=== PATIENT | male | born 1970 | race Caucasian/White ===

== ENCOUNTER 2021-07-12 16:11 | Inpatient (IN) | payer MEDICARE ==
[2021-07-12] MEDS ORDERED: Ondansetron 4 MG Tab.DIS PO PRN (16:32)
[2021-07-12] MEDS ORDERED: Enoxaparin 40 MG/0.4 ML Syringe SUBCUT SCH (16:45)
[2021-07-12] MEDS ORDERED: cefTRIAXone 2 GM Vial IVPUSH SCH (16:45)
[2021-07-12] MEDS: Sodium Chloride 0.9% 10 ML Syringe FLUSH PRN (16:50)
[2021-07-12] MEDS: Sodium Chloride 0.9% 1,000 ML IV SCH (17:00)
[2021-07-12] MEDS: cefTRIAXone 2 GM Vial IVPUSH SCH (17:18)
[2021-07-12] MEDS: Doxycycline 100 MG in Sodium Chloride 0.9% 100 ML IV SCH (17:20)
[2021-07-12] MEDS: Acetaminophen 325 MG Tab PO PRN ×2 (17:20→21:27)
--- NOTE | 2021-07-12 18:16 | PCM.HP.2 ---
H&P History of Present Illness - General Date of Service: 07/12/21 Admit Problem/Dx: Admission Diagnosis/Problem Admission Diagnosis/Problem Pneumonia Source of Information: Patient, Family, Provider History Limitations: Reports: No Limitations - History of Present Illness Initial Comments - Free Text/Narative: Brain started having fever last night, 102.5F, gave him Tylenol and Nyquil to help him sleep. Had chills and cough but no shortness of breath. His got up at noon and checked his temp and was 102.7F and took him too the clinic. Dr Avila saw him, WBC was 23.0, CXR showed possible pneumonia with pleural effusion. He also noticed left leg pain, Dr Avila measured left leg and compared to right leg and they were same size, he was concerned with clot. He has allergy to Amoxicillin, rash but has taken cefdinir, doxycycline in past without issue. Covid & Influenza were negative. His did not use cold packs and last dose of Tylenol was this morning. No ibuprofen given. He is on disability but doesn't know for what. Abdomen Pain Score (Numeric/FACES): 4 - Related Data Allergies/Adverse Reactions: Allergies Allergy/AdvReac Type Severity Reaction Status Date / Time amoxicillin Allergy Rash Verified 07/12/21 16:58 Home Medications: Home Meds Acetaminophen [Tylenol Extra Strength] 1,000 mg PO Q6H PRN 07/12/21 [History] Dextromethorphan HB/Doxylamine [Vicks Nyquil Cough] 30 ml PO Q6H PRN 07/12/21 [History] H&P Review of Systems - Review of Systems: Review Of Systems: See Below General: Reports: Fever, Chills, Malaise HEENT: Reports: No Symptoms Pulmonary: Reports: Cough. Denies: Shortness of Breath Cardiovascular: Reports: Palpitations. Denies: Chest Pain Gastrointestinal: Reports: Nausea. Denies: Abdominal Pain, Constipation, Diarrhea, Vomiting Genitourinary: Reports: Burning. Denies: Dysuria, Frequency, Hematuria Musculoskeletal: Reports: Leg Pain Skin: Reports: Change in Color (red, left leg) Exam - Exam Exam: See Below - Vital Signs Vital Signs: Last Vital Signs Temp 102.4 F H 07/12/21 16:30 Pulse 90 07/12/21 16:30 Resp 18 07/12/21 16:30 BP 140/78 07/12/21 16:30 Pulse Ox 96 07/12/21 16:30 Weight: 208 lb 8 oz - Exam General: Alert, Oriented, Cooperative, Other (Flushed) HEENT: PERRLA, Conjunctiva Clear, EOMI, Hearing Intact, Posterior Pharynx Clear. No: Mucosa Moist & Keys Neck: Supple, Trachea Midline. No: Lymphadenopathy Lungs: Normal Respiratory Effort, Decreased Breath Sounds (BLL), Rales (RLL). No: Wheezing Cardiovascular: Tachycardia GI/Abdominal Exam: Normal Bowel Sounds, Soft, Non-Tender, No Distention (Male) Exam: Deferred Rectal (Males) Exam: Deferred Back Exam: Normal Inspection Extremities: Pedal Edema (left leg 1+), Victor Hugo's Sign (left), Increased Warmth (left calf), Redness (left calf) - Patient Data Lab Results Last 24 hrs: Laboratory Results - last 24 hr 07/12/21 07/12/21 07/12/21 Range/Units 17:00 17:00 17:00 WBC 21.0 H (3.2-10.1) x10-3/uL RBC 5.28 (3.90-5.90) x10(6)uL Hgb 15.5 (12.9-17.7) g/dL Hct 45.5 (38.3-50.1) % MCV 86.0 (80.8-98.7) fL MCH 29.3 (27.0-33.3) pg MCHC 34.1 (28.7-35.3) g/dL RDW 13.0 (12.4-15.0) % Plt Count 199 (117-477) x10(3)uL MPV 7.9 (6.7-11.0) fL Add Manual Diff Yes Neutrophils % (Manual) 91 H (46-82) % Band Neutrophils % 3 (0-6) % Lymphocytes % (Manual) 2 L (13-37) % Monocytes % (Manual) 4 (4-12) % Sodium 138 (135-145) mmol/L Potassium 3.9 (3.5-5.3) mmol/L Chloride 101 (100-110) mmol/L Carbon Dioxide 23 (21-32) mmol/L BUN 13 (7-18) mg/dL Creatinine 1.6 H (0.70-1.30) mg/dL Est Cr Clr Drug Dosing 48.05 mL/min Estimated GFR (MDRD) 46 L (>60) BUN/Creatinine Ratio 8.1 L (9-20) Glucose 140 H (80-116) mg/dL Lactic Acid (0.4-2.0) mmol/L Calcium 9.3 (8.6-10.2) mg/dL Magnesium 1.8 (1.8-2.5) mg/dL C-Reactive Protein 24.1 H* (0.5-0.9) mg/dL 07/12/21 Range/Units 17:00 WBC (3.2-10.1) x10-3/uL RBC (3.90-5.90) x10(6)uL Hgb (12.9-17.7) g/dL Hct (38.3-50.1) % MCV (80.8-98.7) fL MCH (27.0-33.3) pg MCHC (28.7-35.3) g/dL RDW (12.4-15.0) % Plt Count (117-477) x10(3)uL MPV (6.7-11.0) fL Add Manual Diff Neutrophils % (Manual) (46-82) % Band Neutrophils % (0-6) % Lymphocytes % (Manual) (13-37) % Monocytes % (Manual) (4-12) % Sodium (135-145) mmol/L Potassium (3.5-5.3) mmol/L Chloride (100-110) mmol/L Carbon Dioxide (21-32) mmol/L BUN (7-18) mg/dL Creatinine (0.70-1.30) mg/dL Est Cr Clr Drug Dosing mL/min Estimated GFR (MDRD) (>60) BUN/Creatinine Ratio (9-20) Glucose (80-116) mg/dL Lactic Acid 1.6 (0.4-2.0) mmol/L Calcium (8.6-10.2) mg/dL Magnesium (1.8-2.5) mg/dL C-Reactive Protein (0.5-0.9) mg/dL Result Diagrams: 07/12/21 17:00 07/12/21 17:00 Sepsis Event Note - Evaluation Sepsis Screening Result: Possible Sepsis Risk - Focused Exam Vital Signs: Vital Signs Temp Pulse Resp BP Pulse Ox Pulse Ox 07/12/21 16:30 102.4 F H 90 18 140/78 96 96 *Q Meaningful Use (ADM) - VTE Risk Assess *Q Each Risk Factor Represents 1 Point: Age 41 - 59 years, Obesity ( BMI > 25 kg/m2), Serious lung disease including pneumonia Total Score 1 Point Risk Factors: 3 Each Risk Factor Represents 2 Points: None Total Score 2 Point Risk Factors: 0 Each Risk Factor Represents 3 Points: None Total Score 3 Point Risk Factors: 0 Each Risk Factor Represents 5 Points: None Total Score 5 Point Risk Factors: 0 Venous Thromboembolism Risk Factor Score *Q: 3 - Problem List (1) Pneumonia SNOMED Code(s): 091599686 ICD Code: J18.9 - PNEUMONIA, UNSPECIFIED ORGANISM Status: Acute Current Visit: Yes (2) Fever SNOMED Code(s): 480305035 ICD Code: R50.9 - FEVER, UNSPECIFIED Status: Acute Current Visit: Yes (3) Cellulitis SNOMED Code(s): 694761717 ICD Code: L03.90 - CELLULITIS, UNSPECIFIED Status: Acute Current Visit: Yes (4) Left leg pain SNOMED Code(s): 578066352 ICD Code: M79.605 - PAIN IN LEFT LEG Status: Acute Current Visit: Yes (5) JESSE (acute kidney injury) SNOMED Code(s): 30950328, 29137971 ICD Code: N17.9 - ACUTE KIDNEY FAILURE, UNSPECIFIED Status: Acute Current Visit: Yes (6) Dehydration SNOMED Code(s): 09803239 ICD Code: E86.0 - DEHYDRATION Status: Acute Current Visit: Yes Problem List Initiated/Reviewed/Updated: Yes Orders Last 24hrs: Active Orders 24 hr Category Date Time Status Patient Status [ADT] Routine ADT 07/12/21 16:33 Active Oxygen Therapy [RC] PRN Care 07/12/21 16:33 Active Up ad Jose Francisco [RC] ASDIRECTED Care 07/12/21 16:32 Active VTE/DVT Education [RC] Per Unit Routine Care 07/12/21 16:33 Active Vital Signs [RC] Q4H Care 07/12/21 16:33 Active Regular Diet [DIET] Diet 07/12/21 Dinner Active VL Duplex Lwr Ext Veins Ltd Lt [US] Routine Exams 07/13/21 08:00 Ordered CULTURE BLOOD [BC] Urgent Lab 07/12/21 17:00 Received CULTURE BLOOD [BC] Urgent Lab 07/12/21 17:07 Received Acetaminophen [TylenoL] Med 07/12/21 16:32 Active 650 mg PO Q4H PRN Doxycycline [Vibramycin] 100 mg Med 07/12/21 17:00 Active Sodium Chloride 0.9% [Normal Saline] 100 ml IV Q12H Ibuprofen [Motrin] Med 07/12/21 16:32 Active 400 mg PO Q4H PRN Ondansetron [Zofran ODT] Med 07/12/21 16:32 Active 4 mg PO Q4H PRN Sodium Chloride 0.9% [Normal Saline] 1,000 ml Med 07/12/21 16:45 Active IV ASDIRECTED Sodium Chloride 0.9% [Saline Flush] Med 07/12/21 16:32 Active 10 ml FLUSH ASDIRECTED PRN cefTRIAXone [Rocephin] Med 07/12/21 16:48 Active 2 gm IVPUSH Q24H Blood Culture x2 Reflex Set [OM.PC] Urgent Oth 07/12/21 16:32 Ordered Saline Lock Insert [OM.PC] Routine Oth 07/12/21 16:32 Ordered Resuscitation Status Routine Resus Stat 07/12/21 16:32 Ordered Medication Orders Acetaminophen (Acetaminophen 325 Mg Tab) 650 mg PO Q4H PRN PRN Reason: Pain (Mild 1-3)/fever Last Admin: 07/12/21 17:20 Dose: 650 mg Documented by: VENU Ceftriaxone Sodium (Ceftriaxone 2 Gm Vial) 2 gm IVPUSH Q24H [facility] Last Admin: 07/12/21 17:18 Dose: 2 gm Documented by: VENU Sodium Chloride (Normal Saline) 1,000 mls @ 125 mls/hr IV ASDIRECTED [facility] Last Admin: 07/12/21 17:00 Dose: 125 mls/hr Documented by: VENU Doxycycline Hyclate 100 mg/ (Sodium Chloride) 100 mls @ 100 mls/hr IV Q12H [facility] Last Admin: 07/12/21 17:20 Dose: 100 mls/hr Documented by: VENU Ibuprofen (Ibuprofen 400 Mg Tab) 400 mg PO Q4H PRN PRN Reason: Pain/Fever Ondansetron HCl (Ondansetron 4 Mg Tab.Dis) 4 mg PO Q4H PRN PRN Reason: nausea, able to take PO Sodium Chloride (Sodium Chloride 0.9% 10 Ml Syringe) 10 ml FLUSH ASDIRECTED PRN PRN Reason: Keep Vein Open Last Admin: 07/12/21 16:50 Dose: 10 ml Documented by: VENU Assessment/Plan Comment:: 1. Direct admission for pneumonia, fever, cellulitis, left leg pain, JESSE. 2. Fever/pneumonia/cellulitis: WBC 21.0, BC x 2. Lactic acid 1.6. CRP 21.0. Rocephin 2 g IV 24h, Doxycycline 100 mg IV bid. Repeat tomorrow. Alternate Tylenol & Ibuprofen for fever, cold compress to neck/axilla. 3. Dehydration/JESSE: Cr 1.6. NS at 125 ml/hr. 4. Left leg pain: Victor Hugo's positive, rule out DVT. Doppler U/S, tech is here tomorrow so will be after outpatient. Lovenox 1 mg/kg q12h. 5. Diet: regular. 6. Activity: up ad jose francisco. 7. DVT prophylaxis: Lovenox 1 mg/kg sq q12h until ultrasound tomorrow. No compression devices, ANNE to RLE. 8. CODE STATUS: FULL. 9. Discharge planning: anticipate 48-72 hours of IV antibiotics, at least 24 hours afebrile before discharging home. - Mortality Measure Prognosis:: Good
[2021-07-12] MEDS: Enoxaparin 100 MG/1 ML Syringe SUBCUT SCH (18:56)
[2021-07-13] MEDS: Sodium Chloride 0.9% 1,000 ML IV SCH ×3 (01:22→20:28)
[2021-07-13] MEDS: Doxycycline 100 MG in Sodium Chloride 0.9% 100 ML IV SCH ×2 (04:28→17:33)
[2021-07-13] MEDS: Enoxaparin 100 MG/1 ML Syringe SUBCUT SCH ×2 (06:45→17:41)
--- NOTE | 2021-07-13 10:40 | PN ---
DATE SEEN: 07/13/2021 SUBJECTIVE: Brian is a 51-year-old man who was admitted from [facility] yesterday with a fever. He was sent in with possible pneumonia and a painful left leg. He was started on IV antibiotics for the infection. Chest x-ray done at the clinic showed heavy markings in the left lower lobe but no dramatic infiltrates. Admission white count 21,000, BUN 13, creatinine 1.6, and CRP 24. He is examined this morning in the bed. He states he is feeling a little bit better. OBJECTIVE: Vital Signs: Temperature, max at 101 last evening and down to 97.9 this morning. Blood pressure 101/68, pulse 76, respirations 18, O2 saturation 99% on room air. Weight 208 pounds 8 ounces. Skin: Shows a small laceration of approximately 1 cm just proximal to his left ankle with surrounding erythema and pus. There is erythema extending around his calf extending up beyond the knee and up the inner thigh to the proximal anteromedial thigh. His calf and thigh are both tender to the touch. No other rashes noted. Mouth is dry. LUNGS: Clear with good air movement to the base. HEART: Regular. ABDOMEN: Soft and nontender. EXTREMITIES: Pedal pulses are intact without any foot edema. ASSESSMENT: 1. Cellulitis with ascending lymphangitis, left leg. 2. Mild prerenal azotemia. 3. History of amoxicillin allergy. PLAN: We will continue his IV antibiotics. I anticipate an additional 48 to 72 hours of IV antibiotic use and hospitalization with plans to discharge to home when improved. He does have a Doppler ultrasounds scheduled for his leg today. We will continue to provide palliative care measures for his comfort as well. /[id number] NEREYDA/KIM
[2021-07-13] MEDS: Ibuprofen 400 MG Tab PO PRN (13:37)
[2021-07-13] MEDS: Acetaminophen 325 MG Tab PO PRN (13:39)
--- NOTE | 2021-07-13 15:16 | US ---
INDICATION: Left leg swelling. DUPLEX ULTRASOUND LEFT LOWER EXTREMITY VEINS: Utilizing 2-D real time, duplex Doppler spectral analysis and color flow imaging, examination of the left lower extremity veins, including the common femoral vein, proximal greater saphenous vein, proximal deep femoral vein, proximal femoral vein, mid femoral vein, distal femoral vein, popliteal vein, posterior tibial vein, anterior tibial vein, and peroneal vein, revealed no evidence of deep venous thrombosis or obstruction. Compression views showed no abnormal lack of compression to suggest thrombosis. No evidence of incompetence of the valves was identified. The area of the distal thigh - upper knee was not ideally evaluated due to inability to compress in that area due to patient complaint of pain. IMPRESSION: Duplex ultrasound, left lower extremity veins, shows no evidence of deep venous thrombosis or incompetence. [facility]
[2021-07-13] MEDS: cefTRIAXone 2 GM Vial IVPUSH SCH (17:22)
[2021-07-14] MEDS: Acetaminophen 325 MG Tab PO PRN ×2 (03:36→17:13)
[2021-07-14] MEDS: Sodium Chloride 0.9% 1,000 ML IV SCH ×3 (04:36→23:04)
[2021-07-14] MEDS: Doxycycline 100 MG in Sodium Chloride 0.9% 100 ML IV SCH ×2 (04:37→16:56)
[2021-07-14] MEDS: Enoxaparin 100 MG/1 ML Syringe SUBCUT SCH (06:26)
--- NOTE | 2021-07-14 09:47 | PN ---
DATE SEEN: 07/14/2021 HISTORY: Brian is a 51-year-old man who was admitted on 07/12/2021 with fever and leg pain. He was found to have cellulitis of the left lower extremity with ascending lymphangitis close to the left groin and the medial left thigh. He was febrile to 101+ with a white count of 25,000 in the clinic. He was admitted and placed on ceftriaxone and doxycycline IV as he described an amoxicillin allergy. He was also placed on therapeutic Lovenox. A Doppler venous study done yesterday showed no DVT and his Lovenox is now decreased to the prophylactic dose. He is examined in his room this morning, sitting in a chair. He states he feels a little bit better, but when he is up, his leg still hurts quite a bit. OBJECTIVE: VITAL SIGNS: Blood pressure 122/72, pulse 79, respirations 18, O2 saturation 94% on room air, and temperature 98.8. He has remained afebrile overnight. SKIN: Shows erythema with induration nearly circumferential, left calf. He has slightly less redness and less induration proximal to the left knee and the medial left thigh. RESPIRATORY: Respirations are easy. HEART: Regular. ABDOMEN: Soft. EXTREMITIES: There is no edema at the ankles. ASSESSMENT: Cellulitis of left leg with ascending lymphangitis. PLAN: We will continue his IV antibiotics. Brian will need at least another 48 to 72 hours of inpatient antibiotic followed by discharge to home on oral antibiotic when improved. Brian has a difficult social situation with no money and may not be able to afford his 5 dollar co-pay at the drug store for outpatient antibiotics, we will help him arrange this. /[id number] NEREYDA/KIM
[2021-07-14] MEDS: Saccharomyces Boulardii (Probiotic) 250 MG Cap PO SCH ×2 (10:15→20:35)
[2021-07-14] MEDS: Clindamycin HCl 150 MG Cap PO SCH ×2 (15:50→23:04)
[2021-07-14] MEDS: cefTRIAXone 2 GM Vial IVPUSH SCH (16:47)
[2021-07-14] MEDS: Sodium Chloride 0.9% 10 ML Syringe FLUSH PRN (16:48)
[2021-07-14] MEDS: Ibuprofen 400 MG Tab PO PRN (17:11)
[2021-07-15] MEDS: Doxycycline 100 MG in Sodium Chloride 0.9% 100 ML IV SCH (04:35)
[2021-07-15] MEDS ORDERED: Enoxaparin 40 MG/0.4 ML Syringe SUBCUT SCH (09:00)
[2021-07-15] MEDS: Clindamycin HCl 150 MG Cap PO SCH (09:02)
[2021-07-15] MEDS: Saccharomyces Boulardii (Probiotic) 250 MG Cap PO SCH (09:02)
[2021-07-15] MEDS: Sodium Chloride 0.9% 10 ML Syringe FLUSH PRN (14:57)
[2021-07-15] MEDS ORDERED: Clindamycin HCl 150 MG Cap PO ONE (15:00)
[2021-07-15] MEDS ORDERED: cefTRIAXone 2 GM Vial IVPUSH ONE (15:00)
--- NOTE | 2021-07-16 08:30 | DISCH ---
DISCHARGE DATE: 07/15/2021 HISTORY: Brian is a 51-year-old man who was admitted on 07/12/2021 because of fever, suspicion for pneumonia, and left leg infection. Chest x-ray did not confirm pneumonia. He did have a severe cellulitis of the left lower extremity with lymphangitis extending up to his proximal left thigh. He was treated with IV Rocephin and IV doxycycline. He steadily improved, and his white count decreased from 25,000 to 6000 this morning. His leg pain is much improved and the redness and swelling are also significantly better. He is now feeling, he is ready for discharge. The patient is sent home in improved condition to continue medications as follows, clindamycin 300 mg p.o. every 8 hours for 1 more week. He is to have followup with his regular physician in 7 to 10 days and follow up sooner p.r.n. /[id number] NEREYDA/KIM
== END 2021-07-15 15:20 | disposition home or self-care (01) | DRG 603 ==
LOC: FB.MS 16:11
PROVIDERS: ADMIT Family Medicine; ATTEND Family Medicine
DX: L03.116 Cellulitis of left lower limb (principal); N17.9 Acute kidney failure, unspecified; I89.1 Lymphangitis; M79.605 Pain in left leg; E86.0 Dehydration; Z88.1 Allergy status to other antibiotic agents; Z79.899 Other long term (current) drug therapy
CPT/HCPCS: 36415; 80048; 80053; 81001; 83605; 83735; 85025; 86140; 87040; 87070; 87184; 87205; 93971-LT; A9270-GY; J0696; J1650; J3490; J7030